=== PATIENT | male | born 1960 | race Caucasian/White ===

== ENCOUNTER 2017-08-21 18:49 | Observation (INO) ==
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
[2017-08-21 19:23] LABS: Bilirubin,Urine Negative (Negative); Blood,Urine Trace (Negative); Clarity,Urine Clear (Clear); Color,Urine Yellow (Yellow); Glucose,Urine (UA) Normal (Normal); Ketones,Urine Negative (Negative); Leukocyte Esterase,Urine Negative (Negative); Nitrite,Urine Negative (Negative); PH,Urine 6.5 pH Units (5.0-8.0); Protein,Urine Negative (Neg-Trace); Specific Gravity,Urine 1.007 (1.010-1.025); Urobilinogen,Urine Normal (Normal)
[2017-08-21 19:28] LABS: Amphetamine Screen,Urine Negative ng/mL (Cutoff=1000); Barbiturate Screen,Urine Negative ng/mL (Cutoff=200); Benzodiazepines Screen,Urine Negative ng/mL (Cutoff=200); Cannabinoid Screen,Urine Negative ng/mL (Cutoff = 50); Cocaine Screen,Urine Positive ng/mL (Cutoff= 300); Opiate Screen,Urine Negative ng/mL (Cutoff=300); Phencyclidine Screen,Urine Negative ng/mL (Cutoff=25)
[2017-08-21 19:28] LABS: Basophils # 0.1 K/mcL (0.0-0.2); Basophils % 0.9 %; Eosinophils # 0.2 K/mcL (0.0-0.6); Eosinophils % 1.9 %; Hematocrit 42.9 % (37.5-50.1); Immature Granulocytes % 0.2 % (0-4); Lymphocytes # 2.7 K/mcL (0.6-4.6); Lymphocytes % 21.1 %; Mean Corpuscular Hemoglobin 35.6 pg (28.0-33.3); Mean Corpuscular Volume 101.9 fL (83.0-100.0); Mean Platelet Volume 10.9 fL (9.4-12.4); Monocytes # 1.4 K/mcL (0.0-1.3); Monocytes % 11.3 %; Neutrophils # 8.1 K/mcL (1.6-8.9); Platelet Count 125 K/mcL (140-400); Red Blood Count 4.21 M/mcL (4.19-5.50); Red Cell Distribution Width 12.9 % (11.5-14.5); Segmented Neutrophils % 64.6 %
[2017-08-21 19:44] LABS: Acetaminophen < 1.0 mcg/mL (10-30); Alanine Aminotransferase 11 Units/L (0-55); Albumin 3.7 g/dL (3.5-5.0); Albumin/Globulin Ratio 0.9 (1.1-2.2); Alkaline Phosphatase 89 Units/L (38-126); Aspartate Amino Transferase 25 Units/L (5-34); BUN/Creatinine Ratio 17 (6-26); Bilirubin,Direct 0.3 mg/dL (0.0-0.5); Bilirubin,Indirect 0.5 mg/dL (0.0-1.2); Bilirubin,Total 0.8 mg/dL (0.2-1.2); Blood Urea Nitrogen 13 mg/dL (8-26); Calcium 9.5 mg/dL (8.6-10.8); Carbon Dioxide 20 mEq/L (19-29); Chloride 102 mEq/L (98-109); Ethanol 294 mg/dL (0-10); Globulin 4.3 g/dL (2.4-3.5); Glucose 95 mg/dL (70-99); Osmolality,Calculated 280 (280-300); Potassium 3.4 mEq/L (3.5-4.5); Salicylate < 5.0 mg/dL (15-30); Sodium 135 mEq/L (136-145); eGFR For African Americans > 60 (> 60); eGFR For Non-African Americans > 60 (> 60)
--- NOTE | 2017-08-21 21:57 | Emergency Department Note ---
Disposition Clinical Impression: Suicidal ideation Alcohol intoxication Qualifiers: Complication of substance-induced condition: uncomplicated Qualified Code(s): F10.920 - Alcohol use, unspecified with intoxication, uncomplicated Disposition: Still a Patient Condition: Good Referrals: NONE,PCP [Primary Care Provider] - Forms: ED Satisfaction Letter Time of Disposition: 07:00 General Adult HPI - General Chief complaint: ED Psychiatric Symptoms Stated complaint: ETOH intox, psych eval Time Seen by Provider: 08/21/17 19:00 Source: patient Mode of arrival: ambulatory Limitations: no limitations - History of Present Illness Pain Scale: 10 - Related Data Allergies Allergy/AdvReac Type Severity Reaction Status Date / Time acetaminophen [From Tylenol] AdvReac Abdominal Verified 08/21/17 18:57 Pain Past Medical History - Past Medical History Medical history: Reports: COPD, other Psychiatric history: Reports: bipolar - Social History Smoking Status: Current every day smoker Smokeless Tobacco Status: No Alcohol use: Reports: heavy, recent Drug use: Reports: cocaine Physical Exam - General Limitations: no limitations General appearance: alert, appears intoxicated Course Course Narrative: Patient is signed out at nighttime physician Fredrick Peterson. Patient is presenting with alcohol intoxication and suicidal ideation. He is currently having a blood alcohol 294. Patient has no other acute medical issues. No visible signs of trauma to the head is physical exam is otherwise unremarkable. No need for imaging of the head or abdomen at this point. Patient will be observed in the emergency room until medical clearance is completed in our psychiatric team will evaluate. - Reevaluation(s) Reevaluation #1: Alcohol is now 53. Psychiatric team contacted for evaluation in the emergency room. We will continue to monitor until her treatment course and evaluation is completed. Time: 05:29 Reevaluation #2: Patient will be signed out to the daytime physician Dr. Monte. Patient care be established by him. Psychiatric team to evaluate and disposition. Time: 07:00 Vital Signs Temperature 98.2 F 08/21/17 18:50 Pulse Rate 106 08/21/17 18:50 Respiratory Rate 16 08/21/17 18:50 Blood Pressure 128/89 08/21/17 18:50 O2 Sat by Pulse Oximetry 97 08/21/17 18:50 Temperature 98.1 F 08/22/17 05:54 Pulse Rate 78 08/22/17 05:54 Respiratory Rate 18 08/22/17 05:54 Blood Pressure 128/89 08/21/17 18:50 O2 Sat by Pulse Oximetry 96 08/22/17 05:54 Oxygen Delivery Oxygen Delivery Room Air Medical Decision Making - MDM Narrative Medical decision making narrative: Suicidal ideation, alcohol intoxication - Medical Records Medical records reviewed: Yes I reviewed the patient's medical records. - Lab Data Lab results reviewed: Yes I reviewed the patient's lab results. Result diagrams: 08/21/17 19:20 08/21/17 19:20 Lab Results 08/21/17 08/21/17 08/21/17 Range/Units 19:13 19:13 19:20 WBC 12.6 H (4.3-11.1) K/mcL RBC 4.21 (4.19-5.50) M/mcL Hgb 15.0 (12.9-16.9) g/dL Hct 42.9 (37.5-50.1) % MCV 101.9 H (83.0-100.0) fL MCH 35.6 H (28.0-33.3) pg MCHC 35.0 (31.6-35.5) g/dL RDW 12.9 (11.5-14.5) % Plt Count 125 L (140-400) K/mcL MPV 10.9 (9.4-12.4) fL Immature Gran % 0.2 (0-4) % Seg Neutrophils % 64.6 % Lymphocytes % 21.1 % Monocytes % 11.3 % Eosinophils % 1.9 % Basophils % 0.9 % Neutrophils # 8.1 (1.6-8.9) K/mcL Lymphocytes # 2.7 (0.6-4.6) K/mcL Monocytes # 1.4 H (0.0-1.3) K/mcL Eosinophils # 0.2 (0.0-0.6) K/mcL Basophils # 0.1 (0.0-0.2) K/mcL Sodium (136-145) mEq/L Potassium (3.5-4.5) mEq/L Chloride (98-109) mEq/L Carbon Dioxide (19-29) mEq/L BUN (8-26) mg/dL Creatinine (0.72-1.25) mg/dL Est GFR ( Amer) (> 60) Est GFR (Non-Af Amer) (> 60) BUN/Creatinine Ratio (6-26) Glucose (70-99) mg/dL Calculated Osmolality (280-300) Calcium (8.6-10.8) mg/dL Total Bilirubin (0.2-1.2) mg/dL Direct Bilirubin (0.0-0.5) mg/dL Indirect Bilirubin (0.0-1.2) mg/dL AST (5-34) Units/L ALT (0-55) Units/L Alkaline Phosphatase (38-126) Units/L Serum Total Protein (6.0-8.3) g/dL Albumin (3.5-5.0) g/dL Globulin (2.4-3.5) g/dL Albumin/Globulin Ratio (1.1-2.2) Urine Color Yellow (Yellow) Urine Clarity Clear (Clear) Urine pH 6.5 (5.0-8.0) pH Units Ur Specific [place] 1.007 L (1.010-1.025) Urine Protein Negative (Neg-Trace) mg/dL Urine Glucose (UA) Normal (Normal) mg/dL Urine Ketones Negative (Negative) mg/dL Urine Blood Trace H (Negative) Urine Nitrite Negative (Negative) Urine Bilirubin Negative (Negative) Urine Urobilinogen Normal (Normal) mg/dL Ur Leukocyte Esterase Negative (Negative) Salicylates (15-30) mg/dL Urine Opiates Screen Negative (Zfynyy=154) ng/mL Acetaminophen (10-30) mcg/mL Ur Barbiturates Screen Negative (Fgrinr=213) ng/mL Ur Phencyclidine Scrn Negative (Cutoff=25) ng/mL Ur Amphetamines Screen Negative (Xohrev=5546) ng/mL U Benzodiazepines Scrn Negative (Zgpvxa=856) ng/mL Urine Cocaine Screen Positive H (Cutoff= 300) ng/mL U Marijuana (THC) Screen Negative (Cutoff = 50) ng/mL Ethyl Alcohol (0-10) mg/dL 08/21/17 08/22/17 Range/Units 19:20 05:10 WBC (4.3-11.1) K/mcL RBC (4.19-5.50) M/mcL Hgb (12.9-16.9) g/dL Hct (37.5-50.1) % MCV (83.0-100.0) fL MCH (28.0-33.3) pg MCHC (31.6-35.5) g/dL RDW (11.5-14.5) % Plt Count (140-400) K/mcL MPV (9.4-12.4) fL Immature Gran % (0-4) % Seg Neutrophils % % Lymphocytes % % Monocytes % % Eosinophils % % Basophils % % Neutrophils # (1.6-8.9) K/mcL Lymphocytes # (0.6-4.6) K/mcL Monocytes # (0.0-1.3) K/mcL Eosinophils # (0.0-0.6) K/mcL Basophils # (0.0-0.2) K/mcL Sodium 135 L (136-145) mEq/L Potassium 3.4 L (3.5-4.5) mEq/L Chloride 102 (98-109) mEq/L Carbon Dioxide 20 (19-29) mEq/L BUN 13 (8-26) mg/dL Creatinine 0.78 (0.72-1.25) mg/dL Est GFR ( Amer) > 60 (> 60) Est GFR (Non-Af Amer) > 60 (> 60) BUN/Creatinine Ratio 17 (6-26) Glucose 95 (70-99) mg/dL Calculated Osmolality 280 (280-300) Calcium 9.5 (8.6-10.8) mg/dL Total Bilirubin 0.8 (0.2-1.2) mg/dL Direct Bilirubin 0.3 (0.0-0.5) mg/dL Indirect Bilirubin 0.5 (0.0-1.2) mg/dL AST 25 (5-34) Units/L ALT 11 (0-55) Units/L Alkaline Phosphatase 89 (38-126) Units/L Serum Total Protein 8.0 (6.0-8.3) g/dL Albumin 3.7 (3.5-5.0) g/dL Globulin 4.3 H (2.4-3.5) g/dL Albumin/Globulin Ratio 0.9 L (1.1-2.2) Urine Color (Yellow) Urine Clarity (Clear) Urine pH (5.0-8.0) pH Units Ur Specific [place] (1.010-1.025) Urine Protein (Neg-Trace) mg/dL Urine Glucose (UA) (Normal) mg/dL Urine Ketones (Negative) mg/dL Urine Blood (Negative) Urine Nitrite (Negative) Urine Bilirubin (Negative) Urine Urobilinogen (Normal) mg/dL Ur Leukocyte Esterase (Negative) Salicylates < 5.0 L (15-30) mg/dL Urine Opiates Screen (Bfyigm=156) ng/mL Acetaminophen < 1.0 L (10-30) mcg/mL Ur Barbiturates Screen (Evqcne=879) ng/mL Ur Phencyclidine Scrn (Cutoff=25) ng/mL Ur Amphetamines Screen (Zzhtqo=8483) ng/mL U Benzodiazepines Scrn (Ppfnmd=761) ng/mL Urine Cocaine Screen (Cutoff= 300) ng/mL U Marijuana (THC) Screen (Cutoff = 50) ng/mL Ethyl Alcohol 294 H 51 H (0-10) mg/dL
[2017-08-22] MEDS ORDERED: *HR* LORazepam 2 MG/ML VIAL IVP ONE (07:35)
[2017-08-22] MEDS ORDERED: *HR* Promethazine 25 MG/ML VIAL IVP PRN (09:14)
[2017-08-22] MEDS ORDERED: *HR* LORazepam 2 MG/ML VIAL IVP PRN ×2 (09:14)
--- NOTE | 2017-08-22 09:24 | Internal Med History&Physical ---
Date of Encounter: 08/22/17 Time of Encounter: 09:21 Assessment and Plan (1) Alcohol withdrawal Current visit: Yes Status: Acute Start patient on CIWA protocol with IV Ativan as needed for withdrawal symptoms. Patient last drink was approximately 12 hours ago. Patient starts having full-blown withdrawal symptoms approximately a day after stopping alcohol. He is starting to have withdrawal symptoms currently in the formal [facility] restlessness.. Denies prior history of seizures related to that Qualifiers: Qualified Code(s): F10.239 - Alcohol dependence with withdrawal, unspecified (2) Suicidal ideation Current visit: Yes Status: Acute Suicide precautions. Sitter at bedside. Psychiatry evaluation. Internal Medicine - H&P: HPI Chief complaint: suicide ideation History of present illness: Mr. Babb is a 57 year old male with history of COPD presents to the emergency room today with suicide ideation. Patient denies any overdose or any active attempt. Patient is a heavy alcoholic drinks one leader of alcohol every day and a case of beer. Last link was 8 PM. Usually starts going into withdrawal symptoms within one day after last drink. Patient denies any other complaints. Past Med Surg Social Fam HX - Past Medical History Medical history: COPD, other Psychiatric history: bipolar - Social History Smoking Status: Current every day smoker Smokeless Tobacco Status: No Alcohol use: heavy, recent Drug use: cocaine Internal Medicine - H&P: Meds No Known Home Drugs 08/22/17 [History] 3 Allergy/AdvReac Type Severity Reaction Status Date / Time acetaminophen [From Tylenol] AdvReac Abdominal Verified 08/21/17 18:57 Pain All Systems PM: A 10-system review of systems was performed and is negative for pertinent findings except as documented above in the HPI. Review of systems: 10 point review of systems is negative except for HPI - Constitutional Vitals: Temp Pulse Resp BP Pulse Ox 98.1 F 73 14 118/72 97 08/22/17 09:00 08/22/17 09:00 08/22/17 09:00 08/22/17 09:00 08/22/17 09:00 Exam: Gen.: patient is alert oriented times 3 cardiac: normal S1 S2 no additional sounds or murmurs chest: no active wheezing or bronchial breathing abdomen soft nontender nondistended normal bowel sounds lower extremity no swelling. Neuro: no new focal deficits Internal Med - H&P Results - Labs CBC & Chem 7: 11/04/17 19:20 08/21/17 19:20
[2017-08-22 09:51] LABS: Basophils # 0.1 K/mcL (0.0-0.2); Basophils % 1.9 %; Eosinophils # 0.2 K/mcL (0.0-0.6); Eosinophils % 4.7 %; Hematocrit 40.3 % (37.5-50.1); Hemoglobin 14.1 g/dL (12.9-16.9); Immature Granulocytes % 0.2 % (0-4); Immature Platelets 4.7 % (1.1-6.1); Lymphocytes # 1.2 K/mcL (0.6-4.6); Lymphocytes % 28.4 %; Mean Corpuscular Hemoglobin 35.8 pg (28.0-33.3); Mean Corpuscular Volume 102.3 fL (83.0-100.0); Mean Platelet Volume 9.9 fL (9.4-12.4); Monocytes # 0.6 K/mcL (0.0-1.3); Monocytes % 14.9 %; Neutrophils # 2.2 K/mcL (1.6-8.9); Platelet Count 175 K/mcL (140-400); Red Blood Count 3.94 M/mcL (4.19-5.50); Red Cell Distribution Width 13.1 % (11.5-14.5); Segmented Neutrophils % 49.9 %
[2017-08-22 10:02] LABS: BUN/Creatinine Ratio 15 (6-26); Blood Urea Nitrogen 12 mg/dL (8-26); Calcium 9.2 mg/dL (8.6-10.8); Carbon Dioxide 25 mEq/L (19-29); Chloride 103 mEq/L (98-109); Glucose 90 mg/dL (70-99); Magnesium 1.8 mg/dL (1.6-2.6); Osmolality,Calculated 281 (280-300); Potassium 4.3 mEq/L (3.5-4.5); Sodium 136 mEq/L (136-145); eGFR For African Americans > 60 (> 60); eGFR For Non-African Americans > 60 (> 60)
--- NOTE | 2017-08-22 13:24 | Consult Note ---
Date of Encounter: 08/22/17 Time of Encounter: 01:20 Assessment & Recommendation (1) Alcohol dependence with withdrawal Current visit: Yes Status: Acute Assessment & Recommendation: Recommendations to continue with the detox protocol and monitor patient closely since he is reporting history of delirium tremens and seizures from withdrawal in the past. Once the patient is detoxed and is no longer having withdrawal symptoms he needs to be assessed for suicidality and if he is not suicidal he can be discharged to [facility] in [place]. Patient reported that he does have a bed awaiting for him at the [facility] in [place] where his brother resides. I discussed the case with Dr. 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 History of Present Illness Patient: new to practice Requesting Physician: Tate Amezcua MD Reason for consult: Depression and suicidal ideations History of present illness: Mr. Babb is a 57 year old male who was admitted on [facility] from ER where he presented in e in an intoxicated state and reported depression and suicidal ideations. Patient does have an extensive history of alcohol dependence. He has had severe withdrawal symptoms in the past and developed complications such as seizures and delirium tremens from it. It was decided to hospitalize the patient on [facility] floor for detoxification. A psych consult is given to assess patient since he has history of depression and was verbalizing suicidal ideations. Upon interview today patient seems to be slightly irritable and not very cooperative and forthcoming however he did endorse an extensive history of depression and alcohol dependence. He reported that he is being drinking heavily for over a year fill his last period of sobriety was more than a year ago. He reported that he is drinking heavily and am noticing severe depression with low mood and anhedonia hopelessness. He reported that he is having recurrent suicidal thoughts and ideations. He is currently going through withdrawals from alcohol and is appears very anxious and shaky. He is on detox protocol on the [facility] floor. He reported that he has been tried on various medications in the past and he reported that no antidepressant has worked for him and he would not continue with any antidepressant however he did report significant improvement with Neurontin and his anxiety agitation and mood swings and would like to restart that. He is refusing to try any antidepressant at this point in time. He reported to me that after his detox is finished he will try and go to [place] where his brother resides in check himself in a [facility] house. CC: Tate Amezcua MD Past Med Surg Social Fam HX - Past Medical History Medical history: COPD, other - Past Psychiatric History Psychiatric history: Reports: depression, previous psychiatric hospitalization Past psychiatric history details: Patient does report was previous hospitalization for detox and for depression in the past. His last hospitalization was approximately 6 months ago. He is currently not receiving any outpatient psychiatric treatment and is not on any psychiatric medication. Family psychiatric history: Unknown Family History of Suicide: Unknown - Social History Smoking Status: Current every day smoker Smokeless Tobacco Status: No Alcohol use: heavy, recent Drug use: cocaine Occupational status: disabled Current living situation: Home - Independent, Home Activity Level: Independent ambulation Recent Out of Country Travel Within the Last 8 Weeks: No Exposure or Possible Exposure to Illness During Travel: No Additional social history: Patient is resides by himself and receives Social Security disability. He denies any current legal issues. Medications & Allergies No Known Home Drugs 08/22/17 [History] 3 Allergy/AdvReac Type Severity Reaction Status Date / Time acetaminophen [From Tylenol] AdvReac Abdominal Verified 08/21/17 18:57 Pain Review of Systems Psychiatric: Reports: depression, anxiety, suicidal ideation, hopelessness, irritability, mood swings Mental Status Exam Patient orientation: Yes Person, Yes Time, Yes Place Level of alertness: Alert Patient appearance: Unkempt, Disheveled Behavior: nervous, anxious, uncooperative, guarded Psychomotor activity: Normal Eye contact: Minimal Contact Mood description: Depressed, Anxious, Irritable Affect description: constricted, dysphoric Speech pattern: Normal rate, Normal rhythm, Normal tone Speech volume: Normal Thought process: Linear, Goal Oriented Thought content: Yes Suicidal ideation Perceptual disturbances: No Auditory hallucinations, No Visual hallucinations Attention span: Capable of Focused Attention Memory description: Grossly Intact Patient reliability: Reliable Historian Intelligence estimate: Average Judgment: Limited Insight: Minimal Results - Vital Signs Vital signs: Temp Pulse Resp BP Pulse Ox 98.4 F 69 14 137/73 95 08/22/17 11:45 08/22/17 11:45 08/22/17 11:45 08/22/17 11:45 08/22/17 11:45 - Labs Labs: Laboratory Last Values WBC 4.3 K/mcL (4.3-11.1) D 08/22/17 09:44 RBC 3.94 M/mcL (4.19-5.50) L 08/22/17 09:44 Hgb 14.1 g/dL (12.9-16.9) 08/22/17 09:44 Hct 40.3 % (37.5-50.1) 08/22/17 09:44 MCV 102.3 fL (83.0-100.0) H 08/22/17 09:44 MCH 35.8 pg (28.0-33.3) H 08/22/17 09:44 MCHC 35.0 g/dL (31.6-35.5) 08/22/17 09:44 RDW 13.1 % (11.5-14.5) 08/22/17 09:44 Plt Count 175 K/mcL (140-400) 08/22/17 09:44 MPV 9.9 fL (9.4-12.4) 08/22/17 09:44 Immature Gran % 0.2 % (0-4) 08/22/17 09:44 Seg Neutrophils % 49.9 % 08/22/17 09:44 Lymphocytes % 28.4 % 08/22/17 09:44 Monocytes % 14.9 % 08/22/17 09:44 Eosinophils % 4.7 % 08/22/17 09:44 Basophils % 1.9 % 08/22/17 09:44 Neutrophils # 2.2 K/mcL (1.6-8.9) 08/22/17 09:44 Lymphocytes # 1.2 K/mcL (0.6-4.6) 08/22/17 09:44 Monocytes # 0.6 K/mcL (0.0-1.3) 08/22/17 09:44 Eosinophils # 0.2 K/mcL (0.0-0.6) 08/22/17 09:44 Basophils # 0.1 K/mcL (0.0-0.2) 08/22/17 09:44 Immature Plt Fraction 4.7 % (1.1-6.1) 08/22/17 09:44 Sodium 136 mEq/L (136-145) 08/22/17 09:44 Potassium 4.3 mEq/L (3.5-4.5) 08/22/17 09:44 Chloride 103 mEq/L (98-109) 08/22/17 09:44 Carbon Dioxide 25 mEq/L (19-29) 08/22/17 09:44 BUN 12 mg/dL (8-26) 08/22/17 09:44 Creatinine 0.78 mg/dL (0.72-1.25) 08/22/17 09:44 Est GFR ( Amer) > 60 (> 60) 08/22/17 09:44 Est GFR (Non-Af Amer) > 60 (> 60) 08/22/17 09:44 BUN/Creatinine Ratio 15 (6-26) 08/22/17 09:44 Glucose 90 mg/dL (70-99) 08/22/17 09:44 Calculated Osmolality 281 (280-300) 08/22/17 09:44 Calcium 9.2 mg/dL (8.6-10.8) 08/22/17 09:44 Magnesium 1.8 mg/dL (1.6-2.6) 08/22/17 09:44 Total Bilirubin 0.8 mg/dL (0.2-1.2) 08/21/17 19:20 Direct Bilirubin 0.3 mg/dL (0.0-0.5) 08/21/17 19:20 Indirect Bilirubin 0.5 mg/dL (0.0-1.2) 08/21/17 19:20 AST 25 Units/L (5-34) 08/21/17 19:20 ALT 11 Units/L (0-55) 08/21/17 19:20 Alkaline Phosphatase 89 Units/L (38-126) 08/21/17 19:20 Serum Total Protein 8.0 g/dL (6.0-8.3) 08/21/17 19:20 Albumin 3.7 g/dL (3.5-5.0) 08/21/17 19:20 Globulin 4.3 g/dL (2.4-3.5) H 08/21/17 19:20 Albumin/Globulin Ratio 0.9 (1.1-2.2) L 08/21/17 19:20 Urine Color Yellow (Yellow) 08/21/17 19:13 Urine Clarity Clear (Clear) 08/21/17 19:13 Urine pH 6.5 pH Units (5.0-8.0) 08/21/17 19:13 Ur Specific [place] 1.007 (1.010-1.025) L 08/21/17 19:13 Urine Protein Negative mg/dL (Neg-Trace) 08/21/17 19:13 Urine Glucose (UA) Normal mg/dL (Normal) 08/21/17 19:13 Urine Ketones Negative mg/dL (Negative) 08/21/17 19:13 Urine Blood Trace (Negative) H 08/21/17 19:13 Urine Nitrite Negative (Negative) 08/21/17 19:13 Urine Bilirubin Negative (Negative) 08/21/17 19:13 Urine Urobilinogen Normal mg/dL (Normal) 08/21/17 19:13 Ur Leukocyte Esterase Negative (Negative) 08/21/17 19:13 Salicylates < 5.0 mg/dL (15-30) L 08/21/17 19:20 Urine Opiates Screen Negative ng/mL (Zkkglu=644) 08/21/17 19:13 Acetaminophen < 1.0 mcg/mL (10-30) L 08/21/17 19:20 Ur Barbiturates Screen Negative ng/mL (Nyqtmw=287) 08/21/17 19:13 Ur Phencyclidine Scrn Negative ng/mL (Cutoff=25) 08/21/17 19:13 Ur Amphetamines Screen Negative ng/mL (Jxprvx=9087) 08/21/17 19:13 U Benzodiazepines Scrn Negative ng/mL (Xebjvw=992) 08/21/17 19:13 Urine Cocaine Screen Positive ng/mL (Cutoff= 300) H 08/21/17 19:13 U Marijuana (THC) Screen Negative ng/mL (Cutoff = 50) 08/21/17 19:13 Ethyl Alcohol 51 mg/dL (0-10) H 08/22/17 05:10 Consult Discharge Plan - Plan Referrals: NONE,PCP [Primary Care Provider] -
[2017-08-22] MEDS: D5% in 0.9% NACL 1,000 ML IVC SCH (15:31)
[2017-08-22] MEDS: Gabapentin 300 MG CAPSULE PO SCH ×2 (15:34→20:40)
[2017-08-22] MEDS: Famotidine 20 MG/2 ML VIAL IVP SCH (17:41)
[2017-08-23] MEDS: D5% in 0.9% NACL 1,000 ML IVC SCH ×2 (04:40→09:52)
[2017-08-23] MEDS: Famotidine 20 MG/2 ML VIAL IVP SCH (06:19)
[2017-08-23] MEDS ORDERED: *HR* LORazepam 2 MG/ML VIAL IVP PRN ×3 (07:44→12:55)
[2017-08-23] MEDS ORDERED: Thiamine (B-1) 100 MG TABLET PO SCH (09:00)
[2017-08-23] MEDS ORDERED: Thiamine (B-1) 100 MG in D5% in Water 50 ML IVPB SCH (09:00)
[2017-08-23] MEDS: Folic Acid 1 MG TABLET PO SCH (09:48)
[2017-08-23] MEDS: Gabapentin 300 MG CAPSULE PO SCH ×3 (09:48→20:42)
[2017-08-23 12:09] LABS: Basophils # 0.1 K/mcL (0.0-0.2); Basophils % 1.3 %; Eosinophils # 0.1 K/mcL (0.0-0.6); Eosinophils % 2.7 %; Hematocrit 41.2 % (37.5-50.1); Hemoglobin 13.9 g/dL (12.9-16.9); Immature Granulocytes % 0.4 % (0-4); Lymphocytes # 1.4 K/mcL (0.6-4.6); Lymphocytes % 27.3 %; Mean Corpuscular HGB Conc 33.7 g/dL (31.6-35.5); Mean Corpuscular Hemoglobin 34.8 pg (28.0-33.3); Mean Corpuscular Volume 103.3 fL (83.0-100.0); Mean Platelet Volume 10.9 fL (9.4-12.4); Monocytes # 0.6 K/mcL (0.0-1.3); Platelet Count 126 K/mcL (140-400); Red Blood Count 3.99 M/mcL (4.19-5.50); Segmented Neutrophils % 57.3 %
[2017-08-23 12:18] LABS: BUN/Creatinine Ratio 14 (6-26); Blood Urea Nitrogen 11 mg/dL (8-26); Calcium 8.9 mg/dL (8.6-10.8); Carbon Dioxide 24 mEq/L (19-29); Chloride 107 mEq/L (98-109); Glucose 104 mg/dL (70-99); Magnesium 1.7 mg/dL (1.6-2.6); Osmolality,Calculated 288 (280-300); Phosphorous 2.7 mg/dL (2.3-4.7); Potassium 4.1 mEq/L (3.5-4.5); Sodium 139 mEq/L (136-145); eGFR For African Americans > 60 (> 60); eGFR For Non-African Americans > 60 (> 60)
--- NOTE | 2017-08-23 12:51 | Internal Med Progress Note ---
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 High risk for suicide. We will add schedule Librium, cut back on as needed Ativan, to help with smooth withdrawal and help with shaking . Continue thiamine and folic acid. In view of his neuropathy and alcoholism will add vitamin B12. Resume Neurontin. Discussed with psychiatry team about patient condition and left a message for physician. Awaiting call back. Discussed with patient about antidepressant risk and benefit, discussed with patient about different medication. Patient stated he tried Zoloft in the past with no help, his sister is on Prozac and is helping her. Patient is willing to try. With this genetic factors and her response to anti-psychotic patient would benefit from Prozac. Will start small dose awaiting psychiatry input. Patient need to be seen again by psychiatry for reevaluation. 25 - 35 minutes - Subjective Interval history: Patient denies any nausea or vomiting. Patient continued to have suicidal ideation. Patient patient denies any homicidal ideation. Patient does not want to admit about plan. Patient complain of lower extremity discomfort he used to take Neurontin in the past - Constitutional Vitals: Temp Pulse Resp BP Pulse Ox 98.1 F 62 15 121/68 95 08/23/17 07:42 08/23/17 07:42 08/23/17 07:42 08/23/17 07:42 08/23/17 07:42 General appearance: Present: no acute distress, answers questions appropriately - Head Head exam: Present: atraumatic, normocephalic - Neck Neck exam general surgery: Present: supple, trachea midline. Absent: lymphadenopathy - Respiratory Respiratory exam: Present: decreased breath sounds. Absent: accessory muscle use, rales, rhonchi, wheezes - Cardiovascular Cardiovascular exam: Present: RRR, +S1, +S2. Absent: diastolic murmur, gallop, rubs, systolic murmur - GI/Abdominal GI/Abdominal exam: Present: normal bowel sounds, soft, no peritoneal signs. Absent: distended, tenderness - Extremities Exam Extremities exam: Present: full ROM, warm. Absent: calf tenderness, cyanotic, pedal edema - Neurological Exam Neurological exam: Present: CN II-XII intact, no focal deficits. Absent: pronater drift, facial droop, speech deficit Internal Medicine: Result - Labs CBC & Chem 7: 08/23/17 11:50 08/23/17 11:50 Labs: Short CBC 08/23/17 Range/Units 11:50 WBC 5.3 (4.3-11.1) K/mcL Hgb 13.9 (12.9-16.9) g/dL Hct 41.2 (37.5-50.1) % Plt Count 126 L (140-400) K/mcL Neutrophils # 3.0 (1.6-8.9) K/mcL BMP 08/23/17 11:50 Sodium 139 Potassium 4.1 Chloride 107 Carbon Dioxide 24 BUN 11 Creatinine 0.76 Glucose 104 H Calcium 8.9 Consult Discharge Plan - Plan Referrals: NONE,PCP [Primary Care Provider] -
[2017-08-23] MEDS: Thiamine (B-1) 100 MG TABLET PO SCH (13:25)
[2017-08-23] MEDS ORDERED: diazePAM 5 MG TABLET PO SCH (15:00)
[2017-08-23] MEDS: Cyanocobalamin (B-12) 1,000 MCG TABLET PO SCH (15:10)
[2017-08-23] MEDS: FLUoxetine 20 MG CAPSULE PO SCH (15:10)
[2017-08-23] MEDS: Sennosides/Docusate Sodium TABLET PO SCH (15:10)
[2017-08-23] MEDS: Famotidine 20 MG TABLET PO SCH (15:23)
[2017-08-24] MEDS: Sennosides/Docusate Sodium TABLET PO SCH ×3 (01:50→21:31)
[2017-08-24] MEDS: D5% in 0.9% NACL 1,000 ML IVC SCH (02:35)
[2017-08-24 04:46] LABS: BUN/Creatinine Ratio 18 (6-26); Blood Urea Nitrogen 13 mg/dL (8-26); Calcium 8.9 mg/dL (8.6-10.8); Carbon Dioxide 25 mEq/L (19-29); Chloride 108 mEq/L (98-109); Glucose 106 mg/dL (70-99); Magnesium 1.7 mg/dL (1.6-2.6); Osmolality,Calculated 291 (280-300); Phosphorous 3.6 mg/dL (2.3-4.7); Potassium 3.8 mEq/L (3.5-4.5); Sodium 140 mEq/L (136-145); eGFR For African Americans > 60 (> 60); eGFR For Non-African Americans > 60 (> 60)
[2017-08-24] MEDS: Thiamine (B-1) 100 MG TABLET PO SCH (08:44)
[2017-08-24] MEDS: Folic Acid 1 MG TABLET PO SCH (08:44)
[2017-08-24] MEDS: Cyanocobalamin (B-12) 1,000 MCG TABLET PO SCH (08:44)
[2017-08-24] MEDS: Famotidine 20 MG TABLET PO SCH ×2 (08:44→17:03)
[2017-08-24] MEDS: Gabapentin 300 MG CAPSULE PO SCH ×3 (08:44→21:31)
[2017-08-24] MEDS: FLUoxetine 20 MG CAPSULE PO SCH (08:45)
[2017-08-24] MEDS ORDERED: *HR* LORazepam 2 MG/ML VIAL IVP PRN ×3 (09:35→09:36)
[2017-08-24] MEDS: *HR* LORazepam 1 MG TABLET PO SCH ×2 (14:55→21:31)
[2017-08-24] MEDS ORDERED: *HR* LORazepam 1 MG TABLET PO SCH (15:00)
--- NOTE | 2017-08-24 18:30 | Consult Note ---
Date of Encounter: 08/24/17 Time of Encounter: 18:22 Assessment & Recommendation (1) Suicidal ideation Current visit: Yes Status: Acute Assessment & Recommendation: Client has some future orientation. Wants to go to a detention house in [place]. If this can be worked out and client can be discharged there for treatment it is fine for him to go. Fluctuating SI present at client's baseline so finding someplace he wants to go and is hopeful for will be productive as far as treating his mood. However, if client continues to have SI and discharge planning does not work out as he wants then inpatient psychiatric treatment is warranted. 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 Babb is a 57 year old male who was admitted with acute alcohol withdrawal. Endorsed SI to attending physician. Client then denied when seen by Psychiatry. Client then endorsed SI again and Psychiatry was asked to reevaluate. On eval today client reports his SI comes and goes. Diagnosed with Bipolar Disorder but diagnosis most likely Substance Induced Mood Disorder secondary to heavy alcohol and crack cocaine use. Has been treated in mental health and rehab facilities across the state. Chronically noncompliant with treatment. Has not seen an outpatient provider in many months. Reports he had the most success with [facility] but had to stop it due to worsening kidney function. Also reports he has cirrhosis of the liver so finding a medication to manage his mood will be difficult. Client states he wants to go to a detention house in [place]. Discussed how nowhere is likely to accept him if he is actively suicidal. He seemed disappointed by this. Has some future orientation. When alcohol withdrawal is over will likely need to determine where he is with his suicidal thinking. If he feels safe to go to a detention house and they will accept him it is a good discharge plan. However, if client is still endorsing SI and no treatment center will accept him it is reasonable to have him transferred for inpatient mental health treatment. CC: Tate Amezcua MD Past Med Surg Social Fam HX - Past Medical History Medical history: COPD, other - Past Psychiatric History Psychiatric history: Reports: bipolar, prior suicide attempt, previous psychiatric hospitalization Family psychiatric history: Unknown Family History of Suicide: Unknown - Social History Smoking Status: Current every day smoker Smokeless Tobacco Status: No Alcohol use: heavy, recent Drug use: cocaine Medications & Allergies No Known Home Drugs 08/22/17 [History] 3 Allergy/AdvReac Type Severity Reaction Status Date / Time acetaminophen [From Tylenol] AdvReac Abdominal Verified 08/21/17 18:57 Pain Review of Systems Constitutional: Denies: fever, chills, weakness, weight change Eyes: Denies: eye pain, vision change Ears, Nose, Throat: Denies: ear pain, throat pain, dental pain, hearing loss, congestion Cardiovascular: Denies: chest pain, palpitations, dyspnea on exertion Respiratory: Denies: cough, dyspnea, wheezes Gastrointestinal: Denies: abdominal pain, nausea, vomiting, diarrhea, constipation Genitourinary male: Denies: urgency, dysuria, frequency, genital lesions Genitourinary female: Denies: urgency, dysuria, frequency, abnormal menses, dyspareunia Musculoskeletal: Denies: joint swelling, joint pain Integumentary: Denies: rash, lesions, pruritus Neurological: Denies: headache, weakness, numbness, memory loss Psychiatric: Reports: depression, anxiety, suicidal ideation, hopelessness, irritability, mood swings Endocrine: Denies: fatigue, heat or cold intolerance Hematologic/Lymphatic: Denies: easy bruising, lymphadenopathy Allergic/Immunologic: Denies: urticaria, itchy eyes Mental Status Exam Patient orientation: Yes Person, Yes Time, Yes Place Level of alertness: Alert Patient appearance: Unkempt, Disheveled Behavior: calm, cooperative Psychomotor activity: Normal Eye contact: Maintains Eye Contact Mood description: Depressed Affect description: congruent with mood Speech pattern: Normal rate, Normal rhythm, Normal tone Speech volume: Normal Thought process: Goal Oriented Thought content: Yes Suicidal ideation, No Homicidal ideation, No Overt delusions Perceptual disturbances: No Auditory hallucinations, No Visual hallucinations Attention span: Capable of Focused Attention Memory description: Grossly Intact Patient reliability: Questionable Historian Intelligence estimate: Average Judgment: Limited Insight: Minimal Results - Vital Signs Vital signs: Temp Pulse Resp BP Pulse Ox 98.1 F 72 16 131/79 96 08/24/17 11:54 08/24/17 11:54 08/24/17 11:54 08/24/17 11:54 08/24/17 11:54 - Labs Labs: Laboratory Last Values WBC 5.3 K/mcL (4.3-11.1) 08/23/17 11:50 RBC 3.99 M/mcL (4.19-5.50) L 08/23/17 11:50 Hgb 13.9 g/dL (12.9-16.9) 08/23/17 11:50 Hct 41.2 % (37.5-50.1) 08/23/17 11:50 MCV 103.3 fL (83.0-100.0) H 08/23/17 11:50 MCH 34.8 pg (28.0-33.3) H 08/23/17 11:50 MCHC 33.7 g/dL (31.6-35.5) 08/23/17 11:50 RDW 13.0 % (11.5-14.5) 08/23/17 11:50 Plt Count 126 K/mcL (140-400) L 08/23/17 11:50 MPV 10.9 fL (9.4-12.4) 08/23/17 11:50 Immature Gran % 0.4 % (0-4) 08/23/17 11:50 Seg Neutrophils % 57.3 % 08/23/17 11:50 Lymphocytes % 27.3 % 08/23/17 11:50 Monocytes % 11.0 % 08/23/17 11:50 Eosinophils % 2.7 % 08/23/17 11:50 Basophils % 1.3 % 08/23/17 11:50 Neutrophils # 3.0 K/mcL (1.6-8.9) 08/23/17 11:50 Lymphocytes # 1.4 K/mcL (0.6-4.6) 08/23/17 11:50 Monocytes # 0.6 K/mcL (0.0-1.3) 08/23/17 11:50 Eosinophils # 0.1 K/mcL (0.0-0.6) 08/23/17 11:50 Basophils # 0.1 K/mcL (0.0-0.2) 08/23/17 11:50 Immature Plt Fraction 4.7 % (1.1-6.1) 08/22/17 09:44 Sodium 140 mEq/L (136-145) 08/24/17 03:51 Potassium 3.8 mEq/L (3.5-4.5) 08/24/17 03:51 Chloride 108 mEq/L (98-109) 08/24/17 03:51 Carbon Dioxide 25 mEq/L (19-29) 08/24/17 03:51 BUN 13 mg/dL (8-26) 08/24/17 03:51 Creatinine 0.74 mg/dL (0.72-1.25) 08/24/17 03:51 Est GFR ( Amer) > 60 (> 60) 08/24/17 03:51 Est GFR (Non-Af Amer) > 60 (> 60) 08/24/17 03:51 BUN/Creatinine Ratio 18 (6-26) 08/24/17 03:51 Glucose 106 mg/dL (70-99) H 08/24/17 03:51 Calculated Osmolality 291 (280-300) 08/24/17 03:51 Calcium 8.9 mg/dL (8.6-10.8) 08/24/17 03:51 Phosphorus 3.6 mg/dL (2.3-4.7) 08/24/17 03:51 Magnesium 1.7 mg/dL (1.6-2.6) 08/24/17 03:51 Total Bilirubin 0.8 mg/dL (0.2-1.2) 08/21/17 19:20 Direct Bilirubin 0.3 mg/dL (0.0-0.5) 08/21/17 19:20 Indirect Bilirubin 0.5 mg/dL (0.0-1.2) 08/21/17 19:20 AST 25 Units/L (5-34) 08/21/17 19:20 ALT 11 Units/L (0-55) 08/21/17 19:20 Alkaline Phosphatase 89 Units/L (38-126) 08/21/17 19:20 Serum Total Protein 8.0 g/dL (6.0-8.3) 08/21/17 19:20 Albumin 3.7 g/dL (3.5-5.0) 08/21/17 19:20 Globulin 4.3 g/dL (2.4-3.5) H 08/21/17 19:20 Albumin/Globulin Ratio 0.9 (1.1-2.2) L 08/21/17 19:20 Urine Color Yellow (Yellow) 08/21/17 19:13 Urine Clarity Clear (Clear) 08/21/17 19:13 Urine pH 6.5 pH Units (5.0-8.0) 08/21/17 19:13 Ur Specific [place] 1.007 (1.010-1.025) L 08/21/17 19:13 Urine Protein Negative mg/dL (Neg-Trace) 08/21/17 19:13 Urine Glucose (UA) Normal mg/dL (Normal) 08/21/17 19:13 Urine Ketones Negative mg/dL (Negative) 08/21/17 19:13 Urine Blood Trace (Negative) H 08/21/17 19:13 Urine Nitrite Negative (Negative) 08/21/17 19:13 Urine Bilirubin Negative (Negative) 08/21/17 19:13 Urine Urobilinogen Normal mg/dL (Normal) 08/21/17 19:13 Ur Leukocyte Esterase Negative (Negative) 08/21/17 19:13 Salicylates < 5.0 mg/dL (15-30) L 08/21/17 19:20 Urine Opiates Screen Negative ng/mL (Mjyvsb=890) 08/21/17 19:13 Acetaminophen < 1.0 mcg/mL (10-30) L 08/21/17 19:20 Ur Barbiturates Screen Negative ng/mL (Bewqjx=761) 08/21/17 19:13 Ur Phencyclidine Scrn Negative ng/mL (Cutoff=25) 08/21/17 19:13 Ur Amphetamines Screen Negative ng/mL (Cckogx=9537) 08/21/17 19:13 U Benzodiazepines Scrn Negative ng/mL (Jdsjmc=506) 08/21/17 19:13 Urine Cocaine Screen Positive ng/mL (Cutoff= 300) H 08/21/17 19:13 U Marijuana (THC) Screen Negative ng/mL (Cutoff = 50) 08/21/17 19:13 Ethyl Alcohol 51 mg/dL (0-10) H 08/22/17 05:10 Consult Discharge Plan - Plan Referrals: NONE,PCP [Primary Care Provider] -
--- NOTE | 2017-08-24 19:36 | Internal Med Progress Note ---
Date of Encounter: 08/24/17 Time of Encounter: 19:34 - Assessment and plan (1) Substance abuse Current Visit: Yes Status: Acute (2) Suicidal ideation Current Visit: Yes Status: Acute (3) Alcohol withdrawal Current Visit: Yes Status: Acute Qualifiers: Complication of substance-induced condition: uncomplicated Qualified Code(s ): F10.230 - Alcohol dependence with withdrawal, uncomplicated - Subjective Interval history: Patient is awake. Still expressing suicidal ideation. He has some tremors but does not appear to be in withdrawal at this point. CIWA score is less than 7 and if it can be DC'd. He is restarted on scheduled Ativan. Psychiatry input noted. Will discuss the issue of transfer to [facility] will be discussed with the team tomorrow and see if he qualifies. Apparently history of cocaine abuse noted. - Constitutional Vitals: Temp Pulse Resp BP Pulse Ox 98.1 F 72 16 131/79 96 08/24/17 11:54 08/24/17 11:54 08/24/17 11:54 08/24/17 11:54 08/24/17 11:54 General appearance: Present: no acute distress, answers questions appropriately - Head Head exam: Present: atraumatic, normocephalic - Eye Eye exam: Present: PERRL, conjuntiva pink, sclera anicteric Pupils: Present: PERRL - Neck Neck exam general surgery: Present: supple, trachea midline. Absent: lymphadenopathy - Respiratory Respiratory exam: Present: CTAB. Absent: accessory muscle use, rales, rhonchi, wheezes - Cardiovascular Cardiovascular exam: Present: RRR, +S1, +S2. Absent: diastolic murmur, gallop, rubs, systolic murmur - GI/Abdominal GI/Abdominal exam: Present: normal bowel sounds, soft, no peritoneal signs. Absent: distended, tenderness - Extremities Exam Extremities exam: Present: warm, radial pulses palpable and symmetrical. Absent : calf tenderness, cyanotic, pedal edema - Neurological Exam Neurological exam: Present: CN II-XII intact, oriented X3, no focal deficits. Absent: pronater drift, facial droop, speech deficit - Skin Skin exam: Present: dry, intact Internal Medicine: Result - Labs CBC & Chem 7: 08/23/17 11:50 08/24/17 03:51 Labs: BMP 08/24/17 03:51 Sodium 140 Potassium 3.8 Chloride 108 Carbon Dioxide 25 BUN 13 Creatinine 0.74 Glucose 106 H Calcium 8.9 Consult Discharge Plan - Plan Referrals: NONE,PCP [Primary Care Provider] -
[2017-08-25] MEDS ORDERED: Thiamine (B-1) 100 MG TABLET PO SCH (09:00)
[2017-08-25] MEDS: *HR* LORazepam 1 MG TABLET PO SCH ×2 (09:48→15:32)
[2017-08-25] MEDS: Gabapentin 300 MG CAPSULE PO SCH ×2 (09:48→15:31)
[2017-08-25] MEDS: Famotidine 20 MG TABLET PO SCH ×2 (09:48→15:31)
[2017-08-25] MEDS: Folic Acid 1 MG TABLET PO SCH (09:48)
[2017-08-25] MEDS: Cyanocobalamin (B-12) 1,000 MCG TABLET PO SCH (09:48)
[2017-08-25] MEDS: FLUoxetine 20 MG CAPSULE PO SCH (09:48)
[2017-08-25] MEDS: Sennosides/Docusate Sodium TABLET PO SCH (09:49)
--- NOTE | 2017-08-25 12:16 | Discharge Summary ---
Date of Encounter: 08/25/17 Time of Encounter: 12:13 - Discharge Diagnosis (1) Suicidal ideation Priority: Primary Status: Acute (2) Alcohol withdrawal Priority: Secondary Status: Acute Qualifiers: Complication of substance-induced condition: uncomplicated Qualified Code(s ): F10.230 - Alcohol dependence with withdrawal, uncomplicated (3) Substance abuse Priority: Secondary Status: Acute - Discharge Medications Home Medications: Cyanocobalamin (B-12) [Vitamin B12] 1,000 mcg PO DAILY tablet 08/25/17 [Rx] FLUoxetine HCl [Prozac] 20 mg PO DAILY capsule 08/25/17 [Rx] Famotidine [Pepcid] 20 mg PO 0730,1630 tablet 08/25/17 [Rx] Folic Acid 1 mg PO DAILY tablet 08/25/17 [Rx] Gabapentin [Neurontin] 300 mg PO TID capsule 08/25/17 [Rx] LORazepam [Ativan] 1 mg PO TID tablet 08/25/17 [Rx] Sennosides/Docusate Sodium [Senna Plus] 1 each PO BID tablet 08/25/17 [Rx] Thiamine (B-1) [Vitamin B-1] 100 mg PO DAILY tablet 08/25/17 [Rx] Allergies/Adverse Reactions: 3 Allergy/AdvReac Type Severity Reaction Status Date / Time acetaminophen [From Tylenol] AdvReac Abdominal Verified 08/21/17 18:57 Pain Date of admission: 08/22/17 09:09 Primary care physician: PCP NONE Consults: 08/22/17 09:14 Consult to Physical Therapy [CONS] Routine Comment: Evaluate, develop and implement POC Reason for Consult: vlad 08/22/17 09:15 Consult to Sc[facility] Worker [CONS] Routine Reason for SW Consult: chemical dependency Discharging clinician: Conner Myers Anticipated date of discharge: 08/25/17 - Patient Status Disposition: Transfer Psychiatric Hosp Condition: Good Overall status at discharge: patient is progressing back to baseline - Discharge Instructions Follow Up With: NONE,PCP [Primary Care Provider] - - Diet and Activity Activity: resume usual activities as tolerated Diet: advance to your usual diet Hospital course: Mr. Babb is a 57 year old male came in with the suicidal ideation and alcohol withdrawal. He was on CIWA scale which was discontinued yesterday. Patient has been doing well. His is still suicidal and psych consult has recommended inpatient psych. Patient requested to go to [facility] however if that facility does not have bed available then psych has advised transfer him to . patient has been started on thiamine and multivitamin and folic acid. He has depression for which for now Ativan has been started. Medically he is stable. - Time Spent with Patient Total time spent providing and/or coordinating discharge services: Greater than 30 minutes - Constitutional Vitals: Temp Pulse Resp BP Pulse Ox 98 F 56 18 104/68 92 08/25/17 08:00 08/25/17 08:00 08/25/17 08:00 08/25/17 08:00 08/25/17 08:00 General appearance: Present: no acute distress, answers questions appropriately - Head Head exam: Present: atraumatic, normocephalic - Eye Eye exam: Present: PERRL, conjuntiva pink, sclera anicteric Pupils: Present: PERRL - Neck Neck exam general surgery: Present: supple, trachea midline. Absent: lymphadenopathy - Respiratory Respiratory exam: Present: CTAB. Absent: accessory muscle use, rales, rhonchi, wheezes - Cardiovascular Cardiovascular exam: Present: RRR, +S1, +S2. Absent: diastolic murmur, gallop, rubs, systolic murmur - GI/Abdominal GI/Abdominal exam: Present: normal bowel sounds, soft, no peritoneal signs. Absent: distended, tenderness - Extremities Exam Extremities exam: Present: warm, radial pulses palpable and symmetrical. Absent : calf tenderness, cyanotic, pedal edema - Neurological Exam Neurological exam: Present: CN II-XII intact, oriented X3, no focal deficits. Absent: pronater drift, facial droop, speech deficit - Skin Skin exam: Present: dry, intact
[2017-08-25 12:54] VITALS: BP 111/68
== END 2017-08-25 16:26 ==
LOC: EMEROO 18:49 → 2ANU 18:49
PROVIDERS: ADMIT Hospitalist; ATTEND Internal Medicine

== ENCOUNTER 2017-08-25 16:26 | Observation (INO) ==
[2017-08-25] MEDS ORDERED: Nicotine 2 MG GUM BC PRN (16:39)
[2017-08-25] MEDS ORDERED: *HR* LORazepam 2 MG/ML VIAL IM PRN (16:39)
[2017-08-25] MEDS ORDERED: MOM Conc 10 ML UD.LIQ PO PRN (16:39)
[2017-08-25] MEDS ORDERED: Haloperidol Lactate 5 MG/ML VIAL IM PRN (16:39)
[2017-08-25] MEDS ORDERED: *HR* LORazepam 1 MG TABLET PO PRN (16:39)
[2017-08-25] MEDS ORDERED: hydrOXYzine pamoate 25 MG CAPSULE PO PRN (16:39)
[2017-08-25] MEDS ORDERED: Ibuprofen 400 MG TABLET PO PRN (16:39)
[2017-08-25] MEDS ORDERED: Mag Hydrox/Al Hydrox/Simeth 30 ML UDC PO PRN (16:39)
[2017-08-25] MEDS ORDERED: traZODone 50 MG TABLET PO PRN (21:00)
[2017-08-25] MEDS: Gabapentin 300 MG CAPSULE PO SCH (21:27)
[2017-08-25] MEDS: Sennosides/Docusate Sodium TABLET PO SCH (21:27)
[2017-08-25] MEDS: *HR* LORazepam 1 MG TABLET PO SCH (21:27)
[2017-08-26] MEDS ORDERED: FLUoxetine 20 MG CAPSULE PO SCH (09:00)
[2017-08-26] MEDS: Sennosides/Docusate Sodium TABLET PO SCH ×2 (09:53→20:58)
[2017-08-26] MEDS: Folic Acid 1 MG TABLET PO SCH (09:53)
[2017-08-26] MEDS: Gabapentin 300 MG CAPSULE PO SCH ×3 (09:54→20:58)
[2017-08-26] MEDS: Famotidine 20 MG TABLET PO SCH ×2 (09:54→15:35)
[2017-08-26] MEDS: Cyanocobalamin (B-12) 1,000 MCG TABLET PO SCH (09:54)
[2017-08-26] MEDS: *HR* LORazepam 1 MG TABLET PO SCH ×3 (09:54→20:58)
[2017-08-26] MEDS: Thiamine (B-1) 100 MG TABLET PO SCH (09:54)
--- NOTE | 2017-08-26 16:13 | Psychiatry History & Physical ---
Date of Encounter: 08/26/17 Time of Encounter: 16:08 History of Present Illness Patient Stated Chief Complaint: suicidal ideation Medicare Admission Attestation: For traditional Medicare patients the provided hospital inpatient services are reasonable and necessary and in the case of services not specified as inpatient -only under 42 CFR 419.22 (n), that they are appropriately provided as inpatient services in accordance 42 CFR 412.3. For Critical Access Hospital the patient may reasonably be expected to be discharged or transferred to a hospital within 96 hours after admission to the Critical Access Hospital. Admitted From: Home Plans for Post Hospital Care: Transfer In Rehab Fac History of Present Illness: Mr. Babb is a 57 year old male who was admitted from a medical floor where he was receiving treatment for acute alcohol withdrawal. Endorsed SI to provider and ultimately transferred to . Client continues to endorse SI. Gruff. Irritable. Not wanting to talk. Seems to want to be in hospital but not really interested in services provided. Already prescribed Prozac and agreeable to staying on this medication and titrating it for clinical effect. Claims his brother is going to get him into a rehab facility. Staff have contacted his brother who reported client has been through rehab dozens of times. Told staff he would "pull strings" to get his brother somewhere again. Past Med Surg Social Fam HX - Past Medical History Medical history: COPD, other - Past Psychiatric History Psychiatric history: Reports: prior suicide attempt, previous psychiatric hospitalization Family psychiatric history: Unknown Family History of Suicide: Unknown - Social History Smoking Status: Current every day smoker Smokeless Tobacco Status: No Alcohol use: heavy, recent Drug use: cocaine Medications & Allergies Cyanocobalamin (B-12) [Vitamin B12] 1,000 mcg PO DAILY tablet 08/25/17 [Rx] FLUoxetine HCl [Prozac] 20 mg PO DAILY capsule 08/25/17 [Rx] Famotidine [Pepcid] 20 mg PO 0730,1630 tablet 08/25/17 [Rx] Folic Acid 1 mg PO DAILY tablet 08/25/17 [Rx] Gabapentin [Neurontin] 300 mg PO TID capsule 08/25/17 [Rx] LORazepam [Ativan] 1 mg PO TID tablet 08/25/17 [Rx] Sennosides/Docusate Sodium [Senna Plus] 1 each PO BID tablet 08/25/17 [Rx] Thiamine (B-1) [Vitamin B-1] 100 mg PO DAILY tablet 08/25/17 [Rx] 3 Allergy/AdvReac Type Severity Reaction Status Date / Time acetaminophen [From Tylenol] AdvReac Abdominal Verified 08/21/17 18:57 Pain Review of Systems Constitutional: Denies: fever, chills, weakness, weight change Eyes: Denies: eye pain, vision change Ears, Nose, Throat: Denies: ear pain, throat pain, dental pain, hearing loss, congestion Cardiovascular: Denies: chest pain, palpitations, dyspnea on exertion Respiratory: Denies: cough, dyspnea, wheezes Gastrointestinal: Denies: abdominal pain, nausea, vomiting, diarrhea, constipation Genitourinary male: Denies: urgency, dysuria, frequency, genital lesions Genitourinary female: Denies: urgency, dysuria, frequency, abnormal menses, dyspareunia Musculoskeletal: Denies: joint swelling, joint pain Integumentary: Denies: rash, lesions, pruritus Neurological: Denies: headache, weakness, numbness, memory loss Endocrine: Denies: fatigue, heat or cold intolerance Hematologic/Lymphatic: Denies: easy bruising, lymphadenopathy Allergic/Immunologic: Denies: urticaria, itchy eyes Mental Status Exam Patient orientation: Yes Person, Yes Time, Yes Place Level of alertness: Alert Patient appearance: Appropriate Behavior: uncooperative Psychomotor activity: Normal Eye contact: Minimal Contact Mood description: Depressed Affect description: congruent with mood Speech pattern: Normal rate, Normal rhythm, Normal tone Speech volume: Normal Thought process: Linear Thought content: Yes Suicidal ideation, No Homicidal ideation, No Overt delusions Perceptual disturbances: No Auditory hallucinations, No Visual hallucinations Attention span: Capable of Focused Attention Memory description: Grossly Intact Patient reliability: Questionable Historian Intelligence estimate: Average Judgment: Limited Insight: Minimal Exam - HEENT Head exam IM: Present: atraumatic Eye exam IM: Present: EOMI - Neurological Neurological exam IM: Present: alert - Respiratory Respiratory exam IM: Present: CTAB - GI/Abdominal GI/Abdominal exam IM: Present: normal bowel sounds - Extremities Extremities exam IM: Present: full ROM - Skin Skin exam IM: Present: normal color Results - Vital Signs Vital signs: Temp Pulse Resp BP 97.6 F 55 18 126/68 08/26/17 09:00 08/26/17 09:00 08/26/17 09:00 08/26/17 09:00 Assessment and Plan (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
[2017-08-27] MEDS: Famotidine 20 MG TABLET PO SCH (06:58)
[2017-08-27] MEDS: *HR* LORazepam 1 MG TABLET PO SCH ×2 (08:43→15:16)
[2017-08-27] MEDS: Gabapentin 300 MG CAPSULE PO SCH ×2 (08:43→15:16)
[2017-08-27] MEDS: Sennosides/Docusate Sodium TABLET PO SCH (08:43)
[2017-08-27] MEDS: Cyanocobalamin (B-12) 1,000 MCG TABLET PO SCH (08:43)
[2017-08-27] MEDS: Thiamine (B-1) 100 MG TABLET PO SCH (08:43)
[2017-08-27] MEDS: Folic Acid 1 MG TABLET PO SCH (08:44)
[2017-08-27] MEDS ORDERED: FLUoxetine 20 MG CAPSULE PO SCH (09:00)
[2017-08-27 09:28] VITALS: BP 108/70
--- NOTE | 2017-08-27 11:46 | Psychiatry Progress Note ---
Date of Encounter: 08/27/17 Time of Encounter: 11:43 Subjective Interval history: Continues to have fleeting SI but seems to have fleeting SI at his baseline. Has been irritable and dismissive of staff. Stays in bed most of the time. Wants to go to rehab. Staff are working on placing him. Will likely need to go to a fdc first as nowhere is going to have a bed before Wednesday. Staff have spoken with his brother and mother. Client has burned bridges with his family but they will support him going to rehab. Belongings have been misplaced. Hospital currently trying to locate his things as the plan will be to discharge him later today or tomorrow. Review of Systems Constitutional: Denies: fever, chills, weakness, weight change Eyes: Denies: eye pain, vision change Ears, Nose, Throat: Denies: ear pain, throat pain, dental pain, hearing loss, congestion Cardiovascular: Denies: chest pain, palpitations, dyspnea on exertion Respiratory: Denies: cough, dyspnea, wheezes Gastrointestinal: Denies: abdominal pain, nausea, vomiting, diarrhea, constipation Musculoskeletal: Denies: joint swelling, joint pain Neurological: Denies: headache, weakness, numbness, memory loss Objective: Exam Patient orientation: Yes Person, Yes Time, Yes Place Level of alertness: Alert Patient appearance: Appropriate Behavior: calm Psychomotor activity: Normal Eye contact: Minimal Contact Mood description: Irritable Affect description: congruent with mood Speech pattern: Normal rate, Normal rhythm, Normal tone Speech volume: Normal Thought process: Goal Oriented Thought content: Yes Suicidal ideation, No Homicidal ideation, No Overt delusions Perceptual disturbances: No Auditory hallucinations, No Visual hallucinations Judgment: Limited Insight: Minimal Results - Vital Signs Vital Signs: Temp Pulse Resp BP 97.4 F L 72 16 108/70 08/27/17 09:00 08/27/17 09:00 08/27/17 09:00 08/27/17 09:00 Assessment and Plan (1) 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
== END 2017-08-27 16:34 | disposition home or self-care (01) ==
LOC: INTOOBSV 16:26 → 1ANU 16:26
PROVIDERS: ADMIT Psychiatry & Neurology Psychiatry; ATTEND Psychiatry & Neurology Psychiatry